=== PATIENT | female | born 1970 | race Caucasian/White ===

== ENCOUNTER 2018-07-07 09:16 | Day surgery (SDC) | payer BC ==
[~2018-07-07 09:16] MED LIST: DESFLURANE 15 MIN
[2018-07-07] MEDS ORDERED: LACTATED RINGER'S 1,000 ML IV (10:00)
[2018-07-07] MEDS ORDERED: LIDOCAINE 1% (MPF) 30 ML INJ (10:50)
[2018-07-07] MEDS ORDERED: DEXAMETHASONE 4 MG/ML 1 ML INJ (10:51)
[2018-07-07] MEDS ORDERED: BUPIVACAINE 0.5% (SDV) 30 ML INJ (10:51)
[2018-07-07] MEDS ORDERED: CEFAZOLIN 1 GM INJ (11:20)
[2018-07-07] MEDS ORDERED: NEOSTIGMINE 3 MG/3 ML SYRINGE (11:20)
[2018-07-07] MEDS ORDERED: PROPOFOL 20 ML (11:20)
[2018-07-07] MEDS ORDERED: ROCURONIUM 50 MG INJ (11:20)
[2018-07-07] MEDS ORDERED: GLYCOPYRROLATE 0.4 MG INJ (11:20)
[2018-07-07] MEDS ORDERED: DEXAMETHASONE 4 MG/ML 5 ML INJ (11:21)
[2018-07-07] MEDS ORDERED: ONDANSETRON 4 MG INJ (11:21)
[2018-07-07] MEDS ORDERED: MIDAZOLAM 1 MG/ML 2 ML INJ (11:21)
[2018-07-07] MEDS ORDERED: FENTAnyl 50 MCG/ML VIAL ×2 (11:21→12:18)
[2018-07-07] MEDS ORDERED: HYDROmorphONE 1 MG/5 ML IV SYRINGE IV ×3 (11:30)
[2018-07-07] MEDS ORDERED: TRIMETHOBENZAMIDE 100 MG/ML VIAL IM (11:30)
[2018-07-07] MEDS ORDERED: MIDAZOLAM 1 MG/ML 2 ML INJ IV (11:30)
[2018-07-07] MEDS ORDERED: ALBUTEROL 0.083% (NEB) 2.5 MG/3 ML AMP HHN (11:30)
[2018-07-07] MEDS ORDERED: ONDANSETRON 4 MG INJ IV (11:30)
[2018-07-07] MEDS ORDERED: DIPHENHYDRAMINE 50 MG INJ IV (11:30)
[2018-07-07] MEDS ORDERED: OXYCODONE/ACETAMINOPHEN (5/325) TAB PO (11:30)
[2018-07-07] MEDS ORDERED: MEPERIDINE 25 MG INJ IV (11:30)
[2018-07-07] MEDS ORDERED: hydrALAzine 20 MG INJ IV (11:30)
[2018-07-07] MEDS ORDERED: IPRATROPIUM (NEB) 0.5 MG/2.5 ML AMP HHN (11:30)
[2018-07-07] MEDS ORDERED: FENTAnyl 50 MCG/ML VIAL IV ×3 (11:30)
[2018-07-07] MEDS ORDERED: LABETALOL HCL 20MG INJ IV (11:30)
[2018-07-07] MEDS ORDERED: EPHEDrine 25 MG/5 ML SYG IV (11:30)
[2018-07-07] MEDS ORDERED: POVIDONE IODINE 10% 28.4 GM OINT (12:30)
[2018-07-07] MEDS: BUPIVACAINE 0.5% (MPF) 30 ML INJ EPI (13:07)
[2018-07-07] MEDS: OXYCODONE/ACETAMINOPHEN (5/325) TAB PO (15:16)
== END 2018-07-07 15:35 | disposition home or self-care (01) ==
LOC: SDS 09:16
DX: M20.12 Hallux valgus (acquired), left foot (principal); M21.612 Bunion of left foot
CPT/HCPCS: 28299; 84703; 88304; 88311